=== PATIENT | female | born 1990 | race Caucasian/White ===

== ENCOUNTER 2017-02-05 13:23 | Emergency (ER) | payer BC, OTHER ==
[2017-02-05 13:37] VITALS: BP 112/63
--- NOTE | 2017-02-05 14:36 | UC ---
- HPI Summary HPI Summary: About 10 weeks has first appointment with ob coming up---has had red to brown spotting and occasional clots for about 1 month - History of Current Complaint Chief Complaint: UCGU Stated Complaint: PERSONAL Time Seen by Provider: 02/05/17 13:31 Hx Obtained From: Patient Chief Complaint: Concern for Demise Onset/Duration: Started Weeks Ago, Atraumatic, Still Present Timing: Intermittent Severity: Mild Current Severity: None Location of Pain: Left Side Character: Cramping Aggravating Factors: Nothing Alleviating Factors: Nothing Associated Signs and Symptoms: Positive: Negative - Assessment Hx Now: Yes SAB: 0 IEA: 2 History of Ectopic : No Hx Pelvic Inflammatory Disease: No Vaginal Bleeding Amount: Spotting Hx Hysterectomy: No History of STI/STD: No - Additional Pertinent History Maternal Blood Type and Rh: O Positive - Allergies/Home Medications Allergies/Adverse Reactions: Allergies Allergy/AdvReac Type Severity Reaction Status Date / Time No Known Allergies Allergy Verified 10/13/12 22:06 PMH/Surg Hx/FS Hx/Imm Hx Previously Healthy: Yes Endocrine/Hematology History: Denies: Hx Diabetes GI History: Denies: Hx Jaundice History: Denies: Hx Kidney Stones Psychiatric History: Reports: Hx Anxiety - Cancer History Cancer Type, 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 - Immunization History Hx Pertussis Vaccination: Yes Immunizations Up to Date: Yes Infectious Disease History: No Infectious Disease History: Denies: Traveled Outside the [place] in Last 30 Days - Family History Known Family History: Positive: None Family History: R & n/C - Social History Occupation: Employed Part-time Lives: With Family Alcohol Use: None Hx Substance Use: No Substance Use Type: Reports: None Hx Tobacco Use: No Smoking Status (MU): Current Some Day Smoker Review of Systems Constitutional: Negative Skin: Negative Eyes: Negative ENT: Negative Respiratory: Negative Cardiovascular: Negative Gastrointestinal: Negative Genitourinary: Negative Motor: Negative Neurovascular: Negative Musculoskeletal: Negative Neurological: Negative Psychological: Negative All Other Systems Reviewed And Are Negative: Yes Physical Exam - Physical Exam Triage Information Reviewed: Yes Vital Signs Reviewed: Yes Appearance: Positive: Well-Appearing, No Pain Distress, Well-Nourished Skin: Positive: Warm, Skin Color Reflects Adequate Perfusion Head/Face: Positive: Normal Head/Face Inspection. Negative: Temporal Artery Tenderness Eyes: Positive: Normal, EOMI, MICHELLE, Conjunctiva Clear ENT: Positive: Normal ENT inspection, Hearing grossly normal, Pharynx normal. Negative: Nasal congestion, Nasal drainage, Muffled/hoarse voice, Dental tenderness Dental: Negative: Percussion Tenderness @, Gross Decay/Caries @, Dental Fracture @, Abscess @ Neck: Positive: Supple, Nontender, No Lymphadenopathy Respiratory/Lung Sounds: Positive: Clear to Auscultation, Breath Sounds Present , Decreased Breath Sounds Cardiovascular: Positive: Normal, RRR, Pulses are Symmetrical in both Upper and Lower Extremities. Negative: Murmur Abdomen Description: Positive: Nontender, No Organomegaly, Soft Bowel Sounds: Positive: Present Musculoskeletal: Positive: Normal, Strength/ROM Intact Neurological: Positive: Normal, Sensory/Motor Intact, Alert, Oriented to Person Place, Time, CN Intact II-III, Reflexes Intact, NV Bundle Intact Distally, Normal Gait Psychiatric: Positive: Normal AVPU Assessment: Alert - [place] Coma Scale Eye: 4 - Spontaneous Motor: 6 - Obeys Commands Verbal: 5 - Oriented Coma Scale Total: 15 - Vaginal Assessment Presentation Comment: no vag exam done Diagnostics - Radiology No standard instances Radiology Interpretation Completed By: Radiologist Course/Dx - Course Assessment/Plan: pelvic rest avoid ibuprofen follow with robotic machine operator 3 days - Differential Diagnosis/HQI/PQRI: First Trimester Bleeding, Subchorionic Hemorrhage - Diagnoses Provider Diagnoses: Thyroid nodule, Anxiety, First trimester bleeding Discharge - Discharge Plan Condition: Stable Disposition: HOME Patient Education Materials: Subchorionic Hemorrhage (ED) Forms: *Work Release Referrals: Anne Hanley NP [Primary Care Provider] - David Saucedo MD [Medical Doctor] - 3 Days Additional Instructions: Follow with FILM MAKER in 3-5 days
--- NOTE | 2017-02-05 15:02 | RAD ---
Indication: Vaginal bleeding. Real-time sonography of the was performed. There is a single intrauterine gestation present. heart activity is noted at 149 bpm. Amniotic fluid is within normal limits. The pole measures 4.8 cm corresponding to gestational age of 11 weeks 5 days. Gestational sac measures 5.6 cm. The estimated gestational age of 12 weeks 2 days. In the left lateral aspect of the uterus is a hypoechoic area consistent with a subchorionic hemorrhage measuring 4.0 x 1.2 x 2.4 cm. Evaluation of the head is limited. The right ovary measures 4.0 x 1.6 x 3.1 cm. Left ovary measures 4.4 x 1.9 x 1.5 cm. IMPRESSION: Single intrauterine gestation with a gestational age of 12 weeks 2 days. Estimated date delivery is August 18, 2017. heart activity is noted. In the left lateral aspect of the uterus is a hypoechoic area consistent with a subchorionic hemorrhage measuring 4.0 x 1.2 x 2.4 cm. Evaluation of the head is limited. Follow-up sonogram in one to 2 weeks is suggested.
== END 2017-02-05 15:26 | disposition home or self-care (01) ==
LOC: UCEAST 13:23
DX: O20.9 Hemorrhage in early pregnancy, unspecified (principal); O99.281 Endocrine, nutritional and metabolic diseases complicating pregnancy, first trimester; O99.331 Smoking (tobacco) complicating pregnancy, first trimester; F17.210 Nicotine dependence, cigarettes, uncomplicated; O99.341 Other mental disorders complicating pregnancy, first trimester; F41.9 Anxiety disorder, unspecified; Z3A.10 10 weeks gestation of pregnancy
CPT/HCPCS: 76801; 99211; G0463

== ENCOUNTER 2017-05-04 13:46 | Emergency (ER) | payer OTHER ==
[2017-05-04] MEDS ORDERED: Acetaminophen TAB* 325 MG PO ONE (14:15)
[2017-05-04] MEDS ORDERED: HYDROmorphone* 1 MG/ML 1 ML SYR IV ONE (14:15)
[2017-05-04 14:19] LABS: Hematocrit 35 % (35-47); Hemoglobin 11.8 g/dl (12.0-16.0); Mean Corpuscular HGB Conc 33 g/dl (31-36); Mean Corpuscular Hemoglobin 30 pg (27-31); Mean Corpuscular Volume 89 fL (80-97); Mean Platelet Volume 8 um3 (7.4-10.4); Red Blood Count 3.97 10^6/ul (4.0-5.4); Red Cell Distribution Width 13 % (10.5-15); White Blood Count 10.7 10^3/ul (3.5-10.8)
[2017-05-04 14:43] LABS: Albumin 3.7 g/dL (3.2-5.2); BUN/Creatinine Ratio 13.2 (8-20); C Reactive Protein 37.05 mg/L (< 5.00); Calcium 8.8 mg/dL (8.6-10.3); EGFR African American 175.4 (>60); EGFR Non-African American 136.4 (>60); Globulin 3.3 g/dL (2-4); Potassium 3.5 mmol/L (3.5-5.0); Total Bilirubin 0.7 mg/dL (0.2-1.0)
[2017-05-04] MEDS ORDERED: NS 0.9% 1000 ML* 1,000 ML IV ONE ×2 (14:56→17:50)
--- NOTE | 2017-05-04 15:12 | RAD ---
INDICATION: Pain with bleeding. 24 week . COMPARISON: February 05, 2017 TECHNIQUE: A limited sonogram was performed. This examination does not include a complete anatomic survey. FINDINGS: There is a single intrauterine gestation cephalic presentation. The placenta is anterior to the right of midline. There is no evidence of placenta previa. heart rate is documented at 143 beats for minute and there is movement. The amniotic fluid index measures 15.3. The cervix is closed measuring approximately 3.2 cm. Evaluation of cervical length is limited. The estimated gestational age based on biparietal diameter, head circumference, abdominal cervix, and femur length corresponds to 22 weeks 6 days, 24 weeks 1 day, 25 weeks 2 days, 24 weeks 5 days resulting a composite value of 24 weeks 2 days. The incidentally imaged anatomy appears normal. IMPRESSION: INTRAUTERINE GESTATION AT 24 WEEKS 2 DAYS. NO SONOGRAPHIC ABNORMALITIES ARE DETECTED.
[2017-05-04 18:25] VITALS: BP 93/47
[2017-05-04 20:49] LABS: TSH (Thyroid Stimulating Horm) 0.92 mcIU/mL (0.34-5.60)
--- NOTE | 2017-05-04 21:02 | ED ---
I, Oh,Soohyun, scribed for Rajiv James MD on 05/04/17 at 1413 . - HPI Summary HPI Summary: This 27 y/o female presents to ED for pelvic pain since today AM. "It's like muscle is tearing up at bottom of my stomach". Pt states that pain does not feel similar to contractions she experienced with her previous pregnancies. She is currently 25 weeks . LMP was 11/18/2016. Pt had US done on Urgent Care at 02/05/2017. Positive dizziness. Negative dysuria or palpitation. . Primary care does not involves any OB. PMHx includes anxiety/depression. - History of Current Complaint Chief Complaint: EDDysrhythmPalp Stated Complaint: 25WKS PREG/CRAMPING/PELVIC PAIN Time Seen by Provider: 05/04/17 14:00 Hx Obtained From: Patient Chief Complaint: Pain Onset/Duration: Started Hours Ago, Atraumatic, Still Present Timing: Constant Severity: Moderate Current Severity: Moderate Pain Intensity: 5 Character: Tearing Aggravating Factors: Nothing Alleviating Factors: Nothing - Assessment Hx Now: Yes SAB: 0 IEA: 2 Hx Pelvic Inflammatory Disease: No Hx Hysterectomy: No - Additional Pertinent History Maternal Blood Type and Rh: O Positive - Allergies/Home Medications Allergies/Adverse Reactions: Allergies Allergy/AdvReac Type Severity Reaction Status Date / Time No Known Allergies Allergy Verified 10/13/12 22:06 PMH/Surg Hx/FS Hx/Imm Hx Endocrine/Hematology History: Denies: Hx Diabetes GI History: Denies: Hx Jaundice History: Denies: Hx Kidney Stones Psychiatric History: Reports: Hx Anxiety - Cancer History Cancer Type, 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 Infectious Disease History: Denies: Traveled Outside the [place] in Last 30 Days - Family History Known Family History: Negative: Hypertension - Social History Alcohol Use: None Hx Substance Use: No Substance Use Type: Reports: None Hx Tobacco Use: No Smoking Status (MU): Current Some Day Smoker Review of Systems Negative: Fever Positive: Palpitations Positive: other - Pelvic pain. Positive 25 weeks Neurological: Other - Positive dizziness All Other Systems Reviewed And Are Negative: Yes Physical Exam - Physical Exam Triage Information Reviewed: Yes Vital Signs Reviewed: Yes Appearance: Positive: Well-Appearing, No Pain Distress Eyes: Positive: Normal ENT: Positive: Normal ENT inspection Neck: Positive: Supple, Nontender Respiratory/Lung Sounds: Positive: Breath Sounds Present Cardiovascular: Positive: Tachycardia Abdomen Description: Positive: Nontender, Soft, Other: - Musculoskeletal: Positive: Normal Neurological: Positive: Normal Psychiatric: Positive: Affect/Mood Appropriate AVPU Assessment: Alert - Vaginal Assessment Presentation Comment: no vag exam done Diagnostics - Vital Signs Vital Signs Temp Pulse Resp BP Pulse Ox 05/04/17 13:48 99.7 F 144 20 117/69 100 - Laboratory Lab Results: Lab Results 05/04/17 05/04/17 05/04/17 Range/Units 14:07 14:07 14:07 WBC 10.7 (3.5-10.8) 10^3/ul RBC 3.97 L (4.0-5.4) 10^6/ul Hgb 11.8 L (12.0-16.0) g/dl Hct 35 (35-47) % MCV 89 (80-97) fL MCH 30 (27-31) pg MCHC 33 (31-36) g/dl RDW 13 (10.5-15) % Plt Count 184 (150-450) 10^3/ul MPV 8 (7.4-10.4) um3 Neut % (Auto) 90.1 H (38-83) % Lymph % (Auto) 6.2 L (25-47) % [place] % (Auto) 3.2 (1-9) % Eos % (Auto) 0.4 (0-6) % Baso % (Auto) 0.1 (0-2) % Absolute Neuts (auto) 9.6 H (1.5-7.7) 10^3/ul Absolute Lymphs (auto) 0.7 L (1.0-4.8) 10^3/ul Absolute Monos (auto) 0.3 (0-0.8) 10^3/ul Absolute Eos (auto) 0 (0-0.6) 10^3/ul Absolute Basos (auto) 0 (0-0.2) 10^3/ul Absolute Nucleated RBC 0 10^3/ul Nucleated RBC % 0 Sodium 132 L (133-145) mmol/L Potassium 3.5 (3.5-5.0) mmol/L Chloride 100 L (101-111) mmol/L Carbon Dioxide 24 (22-32) mmol/L Anion Gap 8 (2-11) mmol/L BUN 7 (6-24) mg/dL Creatinine 0.53 (0.51-0.95) mg/dL Est GFR ( Amer) 175.4 (>60) Est GFR (Non-Af Amer) 136.4 (>60) BUN/Creatinine Ratio 13.2 (8-20) Glucose 80 (70-100) mg/dL Calcium 8.8 (8.6-10.3) mg/dL Total Bilirubin 0.70 (0.2-1.0) mg/dL AST 13 (13-39) U/L ALT 8 (7-52) U/L Alkaline Phosphatase 84 (34-104) U/L C-Reactive Protein 37.05 H (< 5.00) mg/L Total Protein 7.0 (6.4-8.9) g/dL Albumin 3.7 (3.2-5.2) g/dL Globulin 3.3 (2-4) g/dL Albumin/Globulin Ratio 1.1 (1-3) TSH 0.92 (0.34-5.60) mcIU/mL Blood Type O Positive Antibody Screen Negative Result Diagrams: 05/04/17 14:07 05/04/17 14:07 Lab Statement: Any lab studies that have been ordered have been reviewed, and results considered in the medical decision making process. - EKG 1400 Cardiac Rate: Tachycardia - at 139 bpm EKG Rhythm: Sinus Tachycardia - Additional Comments Diagnostic Additional Comments: US -- INTRAUTERINE GESTATION AT 24 WEEKS 2 DAYS. NO SONOGRAPHIC ABNORMALITIES ARE DETECTED. Re-Evaluation - Re-Evaluation First Eval Re-Evaluation Time: 18:06 Comment: MD in room to re-evaluate pt. Second Eval Re-Evaluation Time: 18:18 Comment: in room to discuss discharge and outpatient f/u with Dr. Mackey. Pt is currently refusing to give urine and requesting discharge. Course/Dx - Course Course Of Treatment: Consultation: Dr. Mackey (plan nurse) at 1621 PM -- currently in procedure. Call returned at 1747 PM Assessment/Plan: Ms. Adair comes in with low abdominal pain all day. She is about 25 weeks without care. No vaginal bleeding. She presented quite tachycardic at about 140. Her uterus was clearly gravid and mildly tender but certainly not firm/tense. She was given fluids and an U/S and labs were obtained. These were all normal but she continued with tachycardia that was only marginally responsive to fluids. She did not want to stay for more fluid and was unable to give us a U/A. Dr. Mackey was consulted and agreed to follow her closely and that she was safe for D/C. - Diagnoses Provider Diagnoses: Round ligament pain, Tachycardia - Provider Notifications Discussed Care Of Patient With: Klever Mackey Time Discussed With Above Provider: 14:08 Discharge - Discharge Plan Condition: Stable Disposition: HOME Patient Education Materials: Abdominal Pain in (ED) Referrals: Klever Mackey MD [Medical Doctor] - 05/06/17 Anne Hanley TEASEL SETTER [Primary Care Provider] - The documentation as recorded by the melanieibYaya triplett Soohyun accurately reflects the service I personally performed and the decisions made by me, Rajiv James MD.
== END 2017-05-04 18:24 | disposition home or self-care (01) ==
LOC: ED 13:46
DX: R10.2 Pelvic and perineal pain (principal); R00.0 Tachycardia, unspecified; Z72.0 Tobacco use; R00.2 Palpitations; R42 Dizziness and giddiness; Z34.93 Encounter for supervision of normal pregnancy, unspecified, third trimester
CPT/HCPCS: 36415; 76815; 80053; 84443; 85025; 86140; 86850; 86900; 86901; 93005; 96374; 99283; A9270-GY

== ENCOUNTER 2017-08-19 08:58 | Inpatient (IN) | payer OTHER ==
[2017-08-19 09:35] LABS: Hematocrit 36 % (35-47); Hemoglobin 11.5 g/dl (12.0-16.0); Mean Corpuscular HGB Conc 33 g/dl (31-36); Mean Corpuscular Hemoglobin 26 pg (27-31); Mean Corpuscular Volume 79 fL (80-97); Mean Platelet Volume 9 um3 (7.4-10.4); Red Cell Distribution Width 15 % (10.5-15); White Blood Count 14.2 10^3/ul (3.5-10.8)
[2017-08-19] MEDS ORDERED: OBEPIDURAL* 0 ML ONE (09:59)
[2017-08-19] MEDS ORDERED: fentaNYL* 50 MCG/ML 2 ML VIAL (100 MCG VIAL) ONE (09:59)
[2017-08-19] MEDS ORDERED: Glycerin ADULT SUPP PR PRN (10:23)
[2017-08-19] MEDS ORDERED: Dibucaine 1% 28.35 GM TUBE PR PRN (10:23)
[2017-08-19] MEDS ORDERED: Witch Hazel PAD* JAR TOPICAL PRN (10:23)
[2017-08-19] MEDS: Ibuprofen TAB* 600 MG PO PRN ×3 (11:13→23:20)
[2017-08-19] MEDS: Acetaminophen TAB* 325 MG PO PRN ×3 (13:44→21:30)
[2017-08-19] MEDS: Docusate CAP* 100 MG PO SCH ×2 (13:44→21:30)
[2017-08-19] MEDS: Simethicone TAB* 80 MG TAB.CHEW PO SCH ×2 (15:12→17:35)
[2017-08-20] MEDS: Acetaminophen TAB* 325 MG PO PRN (02:32)
[2017-08-20] MEDS: oxyCODONE/Acetamin 5/325 MG* TAB PO PRN ×3 (03:00→11:15)
[2017-08-20] MEDS: Ibuprofen TAB* 600 MG PO PRN ×2 (05:33→11:15)
[2017-08-20 07:52] LABS: Hematocrit 31 % (35-47); Hemoglobin 10.1 g/dl (12.0-16.0); Mean Corpuscular HGB Conc 32 g/dl (31-36); Mean Corpuscular Hemoglobin 26 pg (27-31); Mean Corpuscular Volume 79 fL (80-97); Mean Platelet Volume 9 um3 (7.4-10.4); Red Blood Count 3.96 10^6/ul (4.0-5.4); Red Cell Distribution Width 15 % (10.5-15); White Blood Count 12.8 10^3/ul (3.5-10.8)
[2017-08-20 08:06] VITALS: BP 108/71
[2017-08-20] MEDS ORDERED: Ferrous Gluconate TAB* 324 MG TAB PO SCH (09:00)
[2017-08-20] MEDS: Docusate CAP* 100 MG PO SCH (10:27)
== END 2017-08-20 13:37 | disposition home or self-care (01) | DRG 560 ==
LOC: MCHOBOUT 08:58 → MCHOB 09:31
PROVIDERS: ADMIT Midwife; ATTEND Midwife
PROC: 10E0XZZ Delivery of Products of Conception, External Approach (ICD-10-PCS; principal; 2017-08-19)
PROC: 4A1HXCZ Monitoring of Products of Conception, Cardiac Rate, External Approach (ICD-10-PCS; 2017-08-19)
DX: O69.81X0 Labor and delivery complicated by cord around neck, without compression, not applicable or unspecified (principal); Z37.0 Single live birth; Z3A.39 39 weeks gestation of pregnancy
CPT/HCPCS: 36415; 85025; 85027; 86850; 86900; 86901; A9270-GY; J3010

== ENCOUNTER 2019-07-06 12:08 | Observation (INO) | payer OTHER ==
[~2019-07-06 12:08] MED LIST: Buffered Lidocaine 1% SYRIN* 1 ML/SYRINGE INTRADERM ONE; Lactated Ringers 1000 ML Bag* 1,000 ML IV SCH
[2019-07-06] MEDS ORDERED: Propofol* 10 MG/ML 20 ML BTL ONE (13:06)
[2019-07-06] MEDS ORDERED: Lidocaine 2% PF * 5 ML VIAL ONE (13:06)
[2019-07-06] MEDS ORDERED: fentaNYL* 50 MCG/ML 2 ML VIAL (100 MCG VIAL) ONE (13:11)
[2019-07-06] MEDS ORDERED: Midazolam* 1 MG/ML 2 ML VIAL (2 MG) ONE (13:11)
[2019-07-06] MEDS ORDERED: Succinylcholine* 20 MG/ML 10 ML VIAL ONE (13:12)
[2019-07-06] MEDS ORDERED: Phenylephrine 40 MCG/ML SYRINGE ONE (13:33)
[2019-07-06] MEDS ORDERED: Bupivacaine 0.25% SDV PF* 10 ML VIAL INJ ONE (15:11)
[2019-07-06] MEDS ORDERED: Lidocaine 1% INJ* 10 MG/ML 30 ML SDV ONE (15:11)
[2019-07-06] MEDS ORDERED: Ondansetron INJ* 2 MG/ML VIAL ONE (16:19)
[2019-07-06] MEDS ORDERED: Dexamethasone IV* 4 MG/ML 1 ML (4 MG) ONE (16:19)
[2019-07-06] MEDS ORDERED: Metoclopramide IV* 5 MG/ML 2 ML VIAL ONE (16:19)
[2019-07-06] MEDS ORDERED: Acetaminophen IV 1GM/100ML * 100 ML ONE (17:25)
[2019-07-06] MEDS ORDERED: Acetaminophen TAB* 325 MG PO PRN (17:27)
[2019-07-06] MEDS ORDERED: Ibuprofen TAB* 600 MG PO PRN (17:27)
[2019-07-06] MEDS ORDERED: Ondansetron INJ* 2 MG/ML VIAL IV PRN (17:27)
[2019-07-06] MEDS ORDERED: Lactated Ringers 1000 ML Bag* 1,000 ML IV SCH (18:00)
[2019-07-06] MEDS ORDERED: Ketorolac INJ* 30 MG/ML 1 ML VIAL ONE (18:10)
[2019-07-06 23:59] VITALS: BP 101/66
--- NOTE | 2019-07-07 00:10 | OP ---
CC: Dr. Dima Isaac; Anne Hanley NP * DATE OF OPERATION: 07/06/19 - ROOM #353 DATE OF : 86 SERVICE: General Surgery. SURGEON: Loretta Bradley MD CARDIOVASCULAR SURGICAL TECH: Jennifer Juárez NP ANESTHESIOLOGIST: Pearl Marks DO ANESTHESIA: General endotracheal anesthesia. PRE-OP DIAGNOSIS: Right papillary thyroid carcinoma. POST-OP DIAGNOSIS: Right papillary thyroid carcinoma. OPERATIVE PROCEDURE: Right thyroid lobectomy. ESTIMATED BLOOD LOSS: Minimal, less than 10 cc. SPECIMEN: Right thyroid lobe. INDICATIONS FOR SURGERY: Ms. 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 She recently had an FNA biopsy that confirmed papillary thyroid carcinoma. Given that this was a small papillary thyroid carcinoma, she wished to undergo a right thyroid lobectomy. She understood the risks included, but were not limited to bleeding, infection, injury to nearby structures including the recurrent laryngeal nerve. She understood these things as well as alternatives and benefits and wished to proceed. DESCRIPTION OF PROCEDURE: The patient was brought back to the operating room and placed on the operating table in a supine position. Sequential compression devices were placed on the bilateral lower extremities for DVT prophylaxis. No antibiotics were administered. General endotracheal anesthesia was induced and the electrodes to the nerve monitor were attached. A time out was performed prior to administering local anesthesia to the neck. 0.25% Marcaine plus 1% lidocaine was infiltrated into the anterior neck. After this, the neck was prepped and draped in the normal sterile fashion. A second time out was performed verifying the patient's name, date of and the procedure to be performed, which is a right thyroid lobectomy. After this, approximately 4 cm incision was made in the mid anterior neck, approximately 2 fingerbreadths above the sternal notch in a natural crease line. The skin was divided down to the subcutaneous tissue. The platysma was divided and the inferior and superior platysmal flaps were developed. Next the median raphe between the strap muscles was identified and divided exposing the isthmus at the midline. The isthmus was divided off of the trachea and there also appeared to be a possible small pyramidal lobe that was also divided. After dividing the isthmus off of thyroid flush with the left thyroid lobe, attention was turned towards to the right thyroid lobe, which was the one to be removed. The medial attachments to the trachea were divided using a LigaSure. The space of Luna between the cricothyroid muscle and the upper pole vessels was developed and then the superior pole vessels were then divided using a combination of 2-0 silk sutures and a LigaSure. The space lateral to the thyroid lobe was developed bluntly after retracting off the strap muscles. The middle thyroid plane was identified and divided. At this point, the right thyroid lobe was able to be rotated medially and anteriorly out of the neck. With great care the recurrent laryngeal nerve was identified and its entire course was traced out. The recurrent laryngeal nerve was identified both visually and with the nerve monitor and after this was done the entire lobe was able to be taken off the trachea using a LigaSure with great care to avoid the recurrent laryngeal nerve. After this, the entire lobe was carefully examined for parathyroid glands. None were identified. The upper pole was marked and taken off the table as specimen. The superior parathyroid gland was identified in situ posterior to the nerve and the lower parathyroid was also identified anterior to the nerve. Hemostasis was obtained in the neck. Tisseel was placed in the thyroid bed and then the strap muscles were reapproximated using interrupted 4- 0 Vicryl sutures. The platysma was reapproximated using 4-0 Vicryl sutures and a 5-0 Prolene suture was used to close the skin. Sterile dressing was then placed. The patient's anesthesia was reversed and she was taken to the PACU in stable condition. At the end of the case all counts were correct, and I was present during the entirety of the case. [id number]/[facility] #: [id number] [facility]
[2019-07-07] MEDS ORDERED: Buprenorp/Nalox 4-1 MG FILM SL FILM SCH (09:00)
[2019-07-07] MEDS ORDERED: Buprenorp/Nalox 8-2 MG FILM SL FILM SCH (09:00)
--- NOTE | 2019-07-07 12:19 | DS ---
DISCHARGE SUMMARY: DATE OF ADMISSION: 07/06/19 DATE OF DISCHARGE: 07/06/19 SERVICE: General Surgery. ATTENDING SURGEON: Loretta Bradley MD. ADMISSION DIAGNOSIS: Right papillary thyroid carcinoma. OPERATION TITLE: Right thyroid lobectomy. HOSPITAL COURSE: Ms. Adair is a very pleasant 29-year-old female with a history of Willie's thyroiditis, who on followup ultrasound was found to have right thyroid nodule that was biopsied positive for papillary thyroid carcinoma. She elected to undergo right thyroid lobectomy given its small size. She underwent the surgery on 07/06/19, which was uneventful. Given that the surgery was done later in the day and she required a 6-hour period of observation, she initially elected to undergo an period of 24-hour observation rather than be discharged at midnight. However, early in the evening, she was feeling very well and said that she actually preferred to go home in the evening. Therefore, she was discharged approximately 6 hours after surgery. At the time of discharge, her temperature was 98.4, pulse 86, respiratory rate of 16, O2 sat of 100% O2 on room air, blood pressure was 101/66, and she met criteria for discharge according to her nurse. Discharge instructions were given to the patient. She has a followup appointment with myself in 1 week. DISCHARGE INSTRUCTIONS: The patient was given preprinted handout with discharge instructions. DISCHARGE MEDICATIONS: None. DISPOSITION: To home. CONDITION: Good. [id number]/[facility] #: [id number] MTDD
== END 2019-07-06 23:58 | disposition home or self-care (01) ==
LOC: OR 12:08 → SSU 19:44
PROVIDERS: ADMIT Surgery; ATTEND Surgery
DX: C73 Malignant neoplasm of thyroid gland (principal); F17.210 Nicotine dependence, cigarettes, uncomplicated
CPT/HCPCS: 81025; 88307; A9270-GY; C1776; G0378; J0330; J1100; J1885; J2250; J2405; J2704; J2765; J3010; J3490